=== PATIENT | female | born 1995 | race Caucasian/White ===

== ENCOUNTER 2021-01-17 15:46 | Emergency (ER) | payer OTHER, SELFPAY ==
--- NOTE | ~2021-01-17 | CT_ITS ---
EXAMINATION: CT HEAD WITHOUT CONTRAST CLINICAL INFORMATION: Headache COMPARISON: None TECHNIQUE: Contiguous axial imaging was performed from the skull base to vertex without intravenous administration of contrast. This CT examination was performed using dose optimization techniques as appropriate, variously including the following: *Automated exposure control *Adjustment of mA and/or kV according to patient size (this includes techniques or standardized protocols for targeted exams where dose is matched to indication/reason for exam; i.e. extremities or head) *Use of iterative reconstruction technique DLP: 676 mGy-cm FINDINGS: There is no evidence of acute intracranial hemorrhage or territorial infarction. No abnormal mass effect or midline shift is seen. [place]ney to white matter differentiation is well preserved. No extra-axial fluid collections are identified. The ventricles are normal in size. There is no abnormal attenuation within the brain parenchyma. The osseous structures and soft tissues are normal. The mastoid air cells and visualized portions of the paranasal sinuses are well aerated. CT/CT head/brain wo con IMPRESSION: No acute intracranial pathology.
[2021-01-17 16:03] VITALS: BP 127/73; PULSE 88; RESP 18; TEMP 36.8; O2SAT 100; BMI 25.4
[2021-01-17 16:12] LABS: Glucose, Whole Blood 89 mg/dL (60-115)
[2021-01-17 16:23] LABS: Basophils Percent Auto 0.1 % (0-2); Eosinophils Percent Auto 0.2 % (0-4); Hematocrit 37.4 % (37-47); Hemoglobin 12.6 g/dl (12.0-16.0); Imm Gran Abs Auto 0.02 X10*3/uL (0.00-0.03); Imm Gran Pct Auto 0.2 % (0.0-0.4); Lymphocytes Absolute Auto 0.9 X10*3/uL (1.2-4.9); Lymphocytes Percent Auto 7.3 % (20-40); MANUAL DIFF FLAG SCAN; Mean Corpuscular HGB Conc 33.7 g/dl (31.0-35.0); Mean Platelet Volume 9.6 fL (9.4-12.3); Monocytes Absolute Auto 0.1 X10*3/uL (0.1-1.2); Monocytes Percent Auto 0.6 % (2-11); Neutrophils Absolute Auto 11.4 X10*3/uL (2.0-8.3); Neutrophils Percent Auto 91.6 % (45-73); Platelet Count 292 X10*3/uL (160-400); Red Cell Distribution Width 12.1 % (11.0-16.0); SCAN SMEAR FLAG 1; White Blood Count 12.4 X10*3/uL (4.8-10.8)
[2021-01-17] MEDS: 0.9 % Sodium Chloride 1,000 ML 999 ML IV (16:35)
[2021-01-17 16:44] LABS: SLIDE REVIEW VERIFIED
[2021-01-17 16:50] LABS: Anion Gap 12 (12-20); Blood Urea Nitrogen 9 mg/dL (9-16); Calcium 8.5 mg/dL (8.4-10.2); Carbon Dioxide 23 mmol/L (22-29); Chloride 107 mmol/L (96-108); Creatinine Clr Calc Pharmacy 70.2; Estimated Glomerular Filt Rate > 60; Glucose Random 103 mg/dL (60-115); Potassium 3.7 mmol/L (3.3-5.1); Sodium 138 mmol/L (135-145)
--- NOTE | 2021-01-17 17:02 | ECG_ITS ---
Test Reason : LOC Blood Pressure : / mmHG Vent. Rate : 092 BPM Atrial Rate : 092 BPM P-R Int : 114 ms QRS Dur : 108 ms QT Int : 344 ms P-R-T Axes : 015 073 048 degrees QTc Int : 425 ms Normal sinus rhythm Incomplete right bundle branch block Borderline ECG When compared with ECG of 12-OCT-2013 19:31, Nonspecific T wave abnormality, improved in Anterior leads Referred By: Anabel Turner Electronically Signed By:Renato Mukherjee
--- NOTE | 2021-01-17 17:03 | ED.SYNCOPE ---
HPI - Syncope General Chief Complaint: Syncope Stated Complaint: syncope Time Seen by Provider: 01/17/21 16:57 Source: patient Mode of arrival: EMS Limitations: no limitations History of Present Illness HPI narrative: 25-year-old female came in for evaluation of a syncopal episode. 25-year-old female came in after having a witnessed syncopal episode, before patient witnessed syncopized was complaining of headache since last night, patient also had bad tooth needed to be extracted this morning, patient felt lightheadedness and near syncopal symptoms twice today while she was walking , when patient was helped to her car patient witnessed passing not, reportedly patient did not hit her head or neck, patient at this point declined any chest pain or abdominal pain, no abnormal bleeding, complain of pain on the right side of her face thinking it could be from the extracted tooth today, patient still complaining of headache mostly on the right side of her head. Patient declined bleeding or history of anemia. Patient also declined chance of being or history of ectopic . No vaginal bleed or pelvic pain. Related Data Allergies Allergy/AdvReac Type Severity Reaction Status Date / Time No Known Allergies Allergy Unverified 05/22/20 16:13 Review of Systems Review of Systems: All other systems are reviewed and are negative Constitutional: Reports as per HPI and Reports no additional constitutional complaints Eyes: Reports as per HPI and Reports no additional eye complaints Reports system reviewed and no additional complaints, except as documented Cardiovascular: Reports as per HPI and Reports no additional cardiovascular complaints Respiratory: Reports as per HPI and Reports no additional respiratory complaints Gastrointestinal: Reports as per HPI and Reports no additional gastrointestinal complaints Genitourinary: Reports no additional female genitourinary complaints Musculoskeletal: Reports no additional musculoskeletal complaints Skin/Breast: Reports system reviewed and no additional complaints, except as docu Psychiatric: Reports no additional psychiatric complaints Endocrine: Reports no additional endocrine complaints Hematologic/Lymphatic: Reports no additional hematologic/lymphatic complaints Allergic/Immunologic: Reports no additional allergic/immunologic complaints Reports system reviewed and no additional complaints, except as documented and Reports Abnormal speech present FORMERLY [facility], [facility] Past Medical History Medical History No known health problems Social History Social History Alcohol intake: never Smoking Status: Never smoker Use of substances other than those prescribed or required for medical reasons: No Advance Directives: No Advance Directives Information Provided: No Patient : No Physical Exam Vital Signs: Vital Signs: Last Vital Signs Temp 98.2 F 01/17/21 16:03 Pulse 106 H 01/17/21 17:45 Resp 16 01/17/21 17:44 BP 120/71 01/17/21 17:45 Pulse Ox 98 01/17/21 17:44 Body Mass Index 25.4 Vital signs have been reviewed as appeared to be correct. Blood pressure normal. Heart rate normal. Respiration rate normal. Temperature normal. Oxygen saturation normal. Appearance: Alert. Oriented X3. No acute distress. Head: Normal external exam. Normocephalic. Atraumatic. No Gale signs noted. No raccoon eyes noted Eyes: PERRLA. EOMI. Conjunctiva and sclera normal. Eyelids normal. ENT: TM's Normal. Pharynx normal. Uvula midline. Moist mucous membranes. No trismus noted. No drooling noted. No muffled voice noted. Neck: Normal inspection. Neck supple. FROM. No adenopathy. Thyroid Normal. No meningeal signs. No neck mass noted. CVS: Normal heart rate and rhythm. Heart sound normal. No murmurs noted. Pulses normal throughout. Respiratory: No respiratory distress. Painless inspiration. Breath sounds normal. No wheezes/rales/rhonchi noted. Chest nontender. No accessory muscle usage noted or decreased air movement noted. Abdomen: Soft and nontender. Bowel sounds normal in all 4 quadrants. No distention noted. No organomegaly noted. No visible injury noted. Back: No CVA tenderness. Full range of motion noted. Skin: Skin warm and dry. Normal skin color. Normal skin turgor. No rashes/lesions/lacerations noted. Extremities: No lower extremity edema. Extremities exhibit normal range of motion. Extremities nontender. Neuro: Oriented X 3. No motor deficit. No sensory deficit. Reflexes normal. Course Course Course Narrative: Assessment and plan. 25-year-old female came in for evaluation after syncopal episode after having a tooth extraction, patient is orthostatic by symptoms when she changed position from lying to standing, patient received 2 L IV fluids/Tylenol and had head CT. Patient reported improvement of headache, patient feels less dizzy but still dizzy when she changed position. EKG nothing acute, cardiac enzyme are unremarkable. Decline family history of young age or sudden in the family. Leukocytosis which likely to be reactionary after tooth extraction and stress the patient has been through all day today. Patient was instructed to be discharged home and follow-up with PCP with drinking plenty of fluids and return if symptoms are worsening. MDM - Syncope Lab Data Attestation: I reviewed the patient's lab results. Result diagrams: 01/17/21 16:18 01/17/21 16:18 Labs: Lab Results 01/17/21 01/17/21 01/17/21 Range/Units 16:09 16:18 16:18 WBC 12.4 H (4.8-10.8) X10*3/uL RBC 4.20 (4.20-5.50) X10*6/uL Hgb 12.6 (12.0-16.0) g/dl Hct 37.4 (37-47) % MCV 89.0 (80-98) fL MCH 30.0 (27.0-33.0) pg MCHC 33.7 (31.0-35.0) g/dl RDW 12.1 (11.0-16.0) % Plt Count 292 (160-400) X10*3/uL MPV 9.6 (9.4-12.3) fL Immature Gran % (Auto) 0.2 (0.0-0.4) % Neut % (Auto) 91.6 H (45-73) % Lymph % (Auto) 7.3 L (20-40) % [place] % (Auto) 0.6 L (2-11) % Eos % (Auto) 0.2 (0-4) % Baso % (Auto) 0.1 (0-2) % Lymph # (Auto) 0.9 L (1.2-4.9) X10*3/uL [place] # (Auto) 0.1 (0.1-1.2) X10*3/uL Eos # (Auto) 0.0 (0.0-0.4) X10*3/uL Baso # (Auto) 0.0 (0.0-0.2) X10*3/uL Abs Immat Gran (auto) 0.02 (0.00-0.03) X10*3/uL Absolute Neuts (auto) 11.4 H (2.0-8.3) X10*3/uL Absolute Nucleated RBC 0.000 (0.0-0.012) X10*3/uL Nucleated RBC % (auto) 0.0 (0.0-0.2) /100WBC Smear Tech's Comments VERIFIED Hold Purple Top SEE NOTE Sodium (135-145) mmol/L Potassium (3.3-5.1) mmol/L Chloride (96-108) mmol/L Carbon Dioxide (22-29) mmol/L Anion Gap (12-20) BUN (9-16) mg/dL Creatinine (0.5-1.4) mg/dL Estim Creat Clear Calc Estimated GFR POC Glucose 89 (60-115) mg/dL Random Glucose (60-115) mg/dL Calcium (8.4-10.2) mg/dL Troponin I High Sens (<3.5-17.0) ng/L Urine Color Urine Appearance Urine pH (5.0-8.0) Ur Specific [place] (1.005-1.025) Urine Protein (NEG-TRACE) MG/DL Urine Glucose (UA) (NEG) MG/DL Urine Ketones (NEG) MG/DL Urine Blood (NEG) Urine Nitrite (NEG) Ur Leukocyte Esterase (NEG) Urine Test (NEGATIVE) 01/17/21 01/17/21 01/17/21 Range/Units 16:18 16:18 17:22 WBC (4.8-10.8) X10*3/uL RBC (4.20-5.50) X10*6/uL Hgb (12.0-16.0) g/dl Hct (37-47) % MCV (80-98) fL MCH (27.0-33.0) pg MCHC (31.0-35.0) g/dl RDW (11.0-16.0) % Plt Count (160-400) X10*3/uL MPV (9.4-12.3) fL Immature Gran % (Auto) (0.0-0.4) % Neut % (Auto) (45-73) % Lymph % (Auto) (20-40) % [place] % (Auto) (2-11) % Eos % (Auto) (0-4) % Baso % (Auto) (0-2) % Lymph # (Auto) (1.2-4.9) X10*3/uL [place] # (Auto) (0.1-1.2) X10*3/uL Eos # (Auto) (0.0-0.4) X10*3/uL Baso # (Auto) (0.0-0.2) X10*3/uL Abs Immat Gran (auto) (0.00-0.03) X10*3/uL Absolute Neuts (auto) (2.0-8.3) X10*3/uL Absolute Nucleated RBC (0.0-0.012) X10*3/uL Nucleated RBC % (auto) (0.0-0.2) /100WBC Smear Tech's Comments Hold Purple Top Sodium 138 (135-145) mmol/L Potassium 3.7 (3.3-5.1) mmol/L Chloride 107 (96-108) mmol/L Carbon Dioxide 23 (22-29) mmol/L Anion Gap 12 (12-20) BUN 9 (9-16) mg/dL Creatinine 1.01 (0.5-1.4) mg/dL Estim Creat Clear Calc 70.2 Estimated GFR > 60 POC Glucose (60-115) mg/dL Random Glucose 103 (60-115) mg/dL Calcium 8.5 (8.4-10.2) mg/dL Troponin I High Sens < 3.5 (<3.5-17.0) ng/L Urine Color DARK YELLOW Urine Appearance CLEAR Urine pH 6.0 (5.0-8.0) Ur Specific [place] 1.025 (1.005-1.025) Urine Protein NEG (NEG-TRACE) MG/DL Urine Glucose (UA) NEG (NEG) MG/DL Urine Ketones 5 (NEG) MG/DL Urine Blood NEG (NEG) Urine Nitrite NEG (NEG) Ur Leukocyte Esterase NEG (NEG) Urine Test (NEGATIVE) 01/17/21 Range/Units 17:22 WBC (4.8-10.8) X10*3/uL RBC (4.20-5.50) X10*6/uL Hgb (12.0-16.0) g/dl Hct (37-47) % MCV (80-98) fL MCH (27.0-33.0) pg MCHC (31.0-35.0) g/dl RDW (11.0-16.0) % Plt Count (160-400) X10*3/uL MPV (9.4-12.3) fL Immature Gran % (Auto) (0.0-0.4) % Neut % (Auto) (45-73) % Lymph % (Auto) (20-40) % [place] % (Auto) (2-11) % Eos % (Auto) (0-4) % Baso % (Auto) (0-2) % Lymph # (Auto) (1.2-4.9) X10*3/uL [place] # (Auto) (0.1-1.2) X10*3/uL Eos # (Auto) (0.0-0.4) X10*3/uL Baso # (Auto) (0.0-0.2) X10*3/uL Abs Immat Gran (auto) (0.00-0.03) X10*3/uL Absolute Neuts (auto) (2.0-8.3) X10*3/uL Absolute Nucleated RBC (0.0-0.012) X10*3/uL Nucleated RBC % (auto) (0.0-0.2) /100WBC Smear Tech's Comments Hold Purple Top Sodium (135-145) mmol/L Potassium (3.3-5.1) mmol/L Chloride (96-108) mmol/L Carbon Dioxide (22-29) mmol/L Anion Gap (12-20) BUN (9-16) mg/dL Creatinine (0.5-1.4) mg/dL Estim Creat Clear Calc Estimated GFR POC Glucose (60-115) mg/dL Random Glucose (60-115) mg/dL Calcium (8.4-10.2) mg/dL Troponin I High Sens (<3.5-17.0) ng/L Urine Color Urine Appearance Urine pH (5.0-8.0) Ur Specific [place] (1.005-1.025) Urine Protein (NEG-TRACE) MG/DL Urine Glucose (UA) (NEG) MG/DL Urine Ketones (NEG) MG/DL Urine Blood (NEG) Urine Nitrite (NEG) Ur Leukocyte Esterase (NEG) Urine Test NEGATIVE (NEGATIVE) Imaging Data CT scan - head: Radiologist's impression: No acute pathology. ECG Data Interpretation: Normal sinus rhythm at 92 beats per minute, incomplete right bundle branch block, normal interval, normal axis, no ST-T changes. Discharge Plan Discharge Clinical Impression: Vasovagal syncope Patient Disposition: Home, Self-Care Instructions: Syncope in Older Adults (ED) Additional Instructions: Drink plenty of fluid. Return to the emergency department if not feeling well. Referrals: Physician,Unknown [Primary Care Provider] - 2 days
[2021-01-17] MEDS: Acetaminophen 325 MG TABLET 650 MG PO (17:22)
[2021-01-17 17:37] LABS: Glucose Urine UA NEG (NEG); Leukocyte Esterase Urine NEG (NEG); Nitrite Urine NEG (NEG); Specific Gravity - Urine 1.025 (1.005-1.025); Urine Blood NEG (NEG); Urine Ketones 5 MG/DL (NEG); Urine Protein NEG (NEG-TRACE)
[2021-01-17 17:39] LABS: Appearance Urine CLEAR; Color Urine DARK YELLOW; UPreg QC Valid YES; Urine Pregnancy NEGATIVE (NEGATIVE)
[2021-01-17 17:44] VITALS: BP 119/68; PULSE 94; RESP 16; O2SAT 98
[2021-01-17 17:45] VITALS: BP 117/69; BP 119/68; BP 120/71; PULSE 102; PULSE 106; PULSE 94
[2021-01-17 18:11] LABS: Troponin-I High Sensitivity < 3.5 ng/L (<3.5-17.0)
[2021-01-17] MEDS: 0.9 % Sodium Chloride 1,000 ML 999 ML IVCONT (19:28)
[2021-01-17 20:46] VITALS: BP 106/57; PULSE 89; RESP 16; TEMP 36.6; O2SAT 99
== END 2021-01-17 21:06 | disposition home or self-care (01) ==
PROVIDERS: Emergency Provider Emergency Medicine
DX: R55 Syncope and collapse (principal)
CPT/HCPCS: 36415; 70450; 80048; 81003; 81025; 82947; 84484; 85025; 93005; 96360; 96361; 99284; 99285

== ENCOUNTER 2025-05-14 09:53 | Outpatient (AMB) | payer OTHER, SELFPAY ==
--- NOTE | 2025-05-14 09:57 | MHC.PC.OV ---
Vital Signs 05/14/25 10:41 Height 5 ft 2 in Weight 145 lb BMI 26.5 BP 100/76 Blood Pressure Location Rt brachial Position Sitting Pulse 76 Pulse Source Pulse Oximeter Temp 98.5 F Temp Source Oral Pulse Oximetry (%) 98 Oxygen Delivery Method Room Air Intake Visit Reasons: new patient , PE Intake Note: Pt is here today as a New Patient to [facility] care/PE Is last menstrual period known: Yes Last menstrual period: 05/04/25 Allergies Penicillins Adverse Reaction (Verified 05/18/25 22:46) rash Medication List - Last Reconciled 05/14/25 by Moni Blanco MD No Known Home Meds Tobacco use date assessed: 05/14/25 Dental Screening Dental Screen Date: 05/14/25 Did you have a dental visit in the last 12 months?: No Did you have a dental problem in the last 6 months where you did not have access to dental care?: No Was dental information given to patient?: Patient declined HPI HPI Comments History of Present Illness Details 30-year-old lady, new to practice, here to establish care with a new PCP and for physical exam. 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 and medical exam form completed today and given back to patient [facility] Medical History (Updated 05/14/25 @ 11:11 by Moni Blanco MD) Dysmenorrhea No known health problems Surgical History (Updated 05/14/25 @ 11:11 by Moni Blanco MD) No pertinent past surgical history Family History (Updated 05/14/25 @ 11:15 by Moni Blanco MD) Father Acute myocardial infarction Diabetes mellitus Maternal Grandfather Diabetes mellitus Prostate cancer Paternal Grandfather Diabetes mellitus Social History Housing: Apartment Alcohol intake: never Patient Tobacco Use Status: Never used Tobacco e-Cigarette/Vaping Use: Never Used Cognitive needs: No Hearing needs: No Vision needs: Yes Female Reproductive History Menstrual Duration of menses: 3-5 days Date of last menstrual period: 05/04/25 control method: none Questionnaire PHQ-9 Over the last 2 weeks, how often have you been bothered by any of the following problems? 1. Little interest or pleasure in doing things: not at all 2. Feeling down, depressed, or hopeless: not at all 3. Trouble falling or staying asleep, or sleeping too much: more than half the days (Since passing of father recently) 4. Feeling tired or having little energy: several days 5. Poor appetite or overeating: several days 6. Feeling bad about yourself - or that you are a failure or have let yourself or your family down: not at all 7. Trouble concentrating on things, such as reading the newspaper or watching television: several days 8. Moving or speaking so slowly that other people could have noticed. Or the opposite - being so fidgety or restless that you have been moving around a lot more than usual: not at all 9. Thoughts that you would be better off or of hurting yourself in some way: not at all Total score: 5 Depression Screening Interpretation: Negative Depression Screening Done: Yes 18691 - PHQ-9 Billing: Yes Source: Developed by Drs. Donavan Connell, Love Harris, Sherif Marques and colleagues, with an educational maureen from [employer]. Thrive Questionnaire Date Thrive assessed: 05/11/25 I am a: Patient What is your living situation today?: I have a steady place to live Within the past 12 months, did the food you bought not last and you didn't have the money to get more?: Never true Within the past 12 months, did you worry whether your food would run out before you got money to buy more?: Never true Do you have trouble paying for medicines?: No Do you have trouble getting transportation to medical appointments?: No Do you have trouble paying your heating and electricity bill?: No Do you have trouble taking care of your child, family member or friend?: No Do you have trouble with day-to-day activities such as bathing, preparing meals, shopping, managing finances, etc.?: No Are you currently unemployed and looking for a job?: No Are you interested in more education?: No Please select the resources that you would like help with: None Currently or been in a relationship where the following occur: No concerns reported THRIVE Score: 0 AUDIT C Alcohol Use Questionnaire (AUDIT-C) 1. How often do you have a drink containing alcohol?: Monthly or less 2. How many drinks containing alcohol do you have on a typical day when you are drinking?: 1 or 2 3. How often do you have six or more drinks on one occasion?: Never Total Score: 1 Score Reviewed/Action Taken: Yes EDMAR-7 AMB Questionnaire EDMAR-7 Date EDMAR - 7 assessed: 05/14/25 Feeling nervous, anxious, or on edge: 1 = Several days Not being able to stop or control worryin = Several days Worrying too much about different things: 1 = Several days Trouble relaxin = Not at all Being so restless that it is hard to sit still: 0 = Not at all Becoming easily annoyed or irritable: 1 = Several days Feeling afraid as if something awful might happen: 0 = Not at all Total EDMAR-7 score (0-4 normal; 5-9 mild; 10-14 moderate; 15-21 severe): 4 Source: Developed by Drs. Donavan Connell, Love Harris, Sherif Marques and colleagues, with an educational maureen from [employer]. EDMAR-7 Assessment Billing EDMAR-7 Assessment Tool: EDMAR-7 Assessment 91747 Review of Systems Const Denies body aches, Denies fatigue, Denies fever(s), Denies headache(s) and Denies weakness Eyes Denies change in vision ENT Denies dizziness, Denies headache(s) and Denies nasal discharge Card Denies chest pain, Denies lightheadedness, Denies palpitations and Denies dyspnea Resp Denies chest congestion, Denies cough, Denies dyspnea and Denies wheezing GI Denies abdominal pain, Denies change in bowel habits and Denies heartburn Reports as per HPI, Denies urinary frequency and Denies dysuria Musc Reports no additional complaints Skin/Breast Denies breast pain, Denies breast mass, Denies lesions and Denies rash Neuro Denies dizziness, Denies headache(s) and Denies weakness Psych Reports no additional complaints Endo Denies fatigue, Denies polydipsia, Denies polyuria and Denies palpitations Meño/Lymph Denies easy bruising Aller/Immun Denies seasonal rhinorrhea and Denies wheezing Physical exam (Primary Care) Vital Signs: Last Vital Signs Temp 98.5 F 05/14/25 10:41 Pulse 76 05/14/25 10:41 BP 100/76 05/14/25 10:41 Pulse Ox 98 05/14/25 10:41 Oxygen Delivery Method Room Air 05/14/25 10:41 BMI result Body Mass Index 26.5 Tobacco/Smoking Status: Tobacco use Status Tobacco use date assessed 05/14/25 05/14/25 10:45 Patient Tobacco Use Status Never used Tobacco 05/14/25 10:45 e-Cigarette/Vaping Use Never Used 05/14/25 10:45 PHQ-9: PHQ-9 Score PHQ-9: Total score 5 05/18/25 22:53 Depression Screening Interpretation: Negative Thrive Assessment: Date of Thrive Assessment Date Thrive assessed 05/11/25 05/14/25 09:58 Currently or been in a relationship where the following occur: No concerns reported Advance Care Planning discussion: Completed/Scanned Date of discussion: 05/14/25 Who was present: Patient Forms completed: Health Care Proxy Time spent: 16-45 minutes Actual minutes spent: 2 Const General: no acute distress and alert Orientation/consciousness: patient oriented x3 HENMT Head: Yes normocephalic Ears: external ears normal, TM's normal bilaterally and EAC's normal General nose exam: Normal external nose present Face and sinus: Yes face symmetric Mouth: Normal oral and palatal mucosa present and moist mucous membranes Eyes Other: Corrected Vision by Snellen chart, with contact lenses OD 20/13 OS 20/15 OU 20/20 General: appearance normal, both eyes and all related structures Conjunctivae: conjunctivae normal Sclerae: sclerae normal Pupils: Equal, round and reactive pupils present EOM: EOMs intact bilaterally Neck Neck: Yes full ROM, Yes no lymphadenopathy and Yes supple Thyroid: Thyroid normal Chest Chest palpation & inspection: normal inspection of the chest Breast/axilla inspection: Other (Nipple ring bilateral) Breast/axilla palpation: normal palpation of the breasts and normal palpation of the axillae Resp Effort & Inspection: normal respiratory effort Auscultation: clear to auscultation bilaterally Cardio Other: S1-S2 present regular rate and rhythm, no murmurs Rate: regular rate Rhythm: regular rhythm Heart sounds: S1 normal heart sound present and S2 normal heart sound present GI Inspection: Yes normal to inspection Palpation (GI): Soft to palpation, nontender, no guarding and no masses Auscultation: normal bowel sounds General: Yes no CVA tenderness and Yes deferred (Referred to [facility]) Back/Spine/Pelvis Back: no CVA tenderness and No back tenderness Skin Other: Tattoo on left upper back General skin exam: no rashes or lesions noted Neuro General: patient oriented x3, gait normal, tone normal, moves all extremities, Normal light touch and pain sensation and no focal motor deficits Cranial nerves: Yes Equal, round and reactive pupils present Cognition (Neuro): normal cognition Gait exam (Neuro): Normal gait present Motor exam (neuro): 5/5 motor strength present throughout Extrem General: Yes full ROM, Yes no joint enlargement, Yes no calf tenderness and Yes normal gait Psych Appearance: grossly normal and well kempt Mental Status: mental status grossly normal Speech and movement: Normal speech and movement present Affect: normal affect Attitude: cooperative Thought process: Normal thought process present Thought content: Normal thought content present Coding Level of Care Code New Pt Prev Care 18-39yr(27975 Diagnoses Annual visit for general adult medical examination with abnormal findings Z00.01 Dysmenorrhea N94.6 Advance directive discussed with patient Z71.89 Screening examination for pulmonary tuberculosis Z11.1 Encounter for hepatitis C screening test for low risk patient Z11.59 Screening for malignant neoplasm of cervix Z12.4 Additional Codes EDMAR-7 Assessment Billing - EDMAR-7 Assessment Tool: EDMAR-7 Assessment 44987 ([id number]) PHQ-9 - 87117 - PHQ-9 Billing: Yes ([id number]) Vital Signs *Quality* - Advance Care Planning discussion: Completed/Scanned ([id number]) Vital Signs *Quality* - Time spent: 16-45 minutes ([id number]) Assessment & Plan Assessment & Plan (1) Annual visit for general adult medical examination with abnormal findings: Code(s): Z00.01 - Encounter for general adult medical examination with abnormal findings Plan: Will check appropriate labs. Recommended dental visit every 6 months and regular eye exams, at least every 2 years. Take adequate calcium in diet and vitamin-D 3 at 2000 IU per cap once a day, in addition to weight-bearing exercises to help maintain good muscle tone and weight control. Instructed to do self-breast exam, and recommended to get yearly mammogram, starting at age 40. Reminded to get yearly flu vaccine, recommended to get COVID booster, up-to-date with her Tdap in all required vaccines by her employment. 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 (3) Advance directive discussed with patient: Code(s): Z71.89 - Other specified counseling Plan: Initiated the conversation about Advanced Directives. Advanced Directives help patients prepare for current and future decisions about their medical treatment and place of care. Discussed with patient that it is a process where a patients current condition and prognosis are reviewed, their wishes for information regarding their illness are elicited, and likely medical dilemmas are presented and options discussed. Healthcare proxy form completed today. The form can be amended as needed, reviewed yearly and make changes as needed (4) Screening examination for pulmonary tuberculosis: Code(s): Z11.1 - Encounter for screening for respiratory tuberculosis Plan: T spot ordered (5) Encounter for hepatitis C screening test for low risk patient: Code(s): Z11.59 - Encounter for screening for other viral diseases Plan: Hepatitis-C antibody level ordered (6) Screening for malignant neoplasm of cervix: Code(s): Z12.4 - Encounter for screening for malignant neoplasm of cervix Plan: Referred to [facility] in [place] per patient preference Orders: Orders Alanine Aminotransferase 05/14/25 N94.6 - Dysmenorrhea, unspecified, Z00.01 - Encounter for general adult medical examination with abnormal findings, Z11.1 - Encounter for screening for respiratory tuberculosis, Z11.59 - Encounter for screening for other viral diseases, Z13.1 - Encounter for screening for diabetes mellitus, Z13.220 - Encounter for screening for lipoid disorders, Z71.89 - Other specified counseling Aspartate Amino Transferase 05/14/25 N94.6 - Dysmenorrhea, unspecified, Z00.01 - Encounter for general adult medical examination with abnormal findings, Z11.1 - Encounter for screening for respiratory tuberculosis, Z11.59 - Encounter for screening for other viral diseases, Z13.1 - Encounter for screening for diabetes mellitus, Z13.220 - Encounter for screening for lipoid disorders, Z71.89 - Other specified counseling Basic Metabolic Panel Fasting 05/14/25 N94.6 - Dysmenorrhea, unspecified, Z00.01 - Encounter for general adult medical examination with abnormal findings, Z11.1 - Encounter for screening for respiratory tuberculosis, Z11.59 - Encounter for screening for other viral diseases, Z13.1 - Encounter for screening for diabetes mellitus, Z13.220 - Encounter for screening for lipoid disorders, Z71.89 - Other specified counseling Complete Blood Count Auto Diff 05/14/25 N94.6 - Dysmenorrhea, unspecified, Z00.01 - Encounter for general adult medical examination with abnormal findings, Z11.1 - Encounter for screening for respiratory tuberculosis, Z11.59 - Encounter for screening for other viral diseases, Z13.1 - Encounter for screening for diabetes mellitus, Z13.220 - Encounter for screening for lipoid disorders, Z71.89 - Other specified counseling Vitamin D 25-OH Total 05/14/25 N94.6 - Dysmenorrhea, unspecified, Z00.01 - Encounter for general adult medical examination with abnormal findings, Z11.1 - Encounter for screening for respiratory tuberculosis, Z11.59 - Encounter for screening for other viral diseases, Z13.1 - Encounter for screening for diabetes mellitus, Z13.220 - Encounter for screening for lipoid disorders, Z71.89 - Other specified counseling Hepatitis C Antibody 05/14/25 N94.6 - Dysmenorrhea, unspecified, Z00.01 - Encounter for general adult medical examination with abnormal findings, Z11.1 - Encounter for screening for respiratory tuberculosis, Z11.59 - Encounter for screening for other viral diseases, Z13.1 - Encounter for screening for diabetes mellitus, Z13.220 - Encounter for screening for lipoid disorders, Z71.89 - Other specified counseling Lipid Panel 05/14/25 N94.6 - Dysmenorrhea, unspecified, Z00.01 - Encounter for general adult medical examination with abnormal findings, Z11.1 - Encounter for screening for respiratory tuberculosis, Z11.59 - Encounter for screening for other viral diseases, Z13.1 - Encounter for screening for diabetes mellitus, Z13.220 - Encounter for screening for lipoid disorders, Z71.89 - Other specified counseling T Spot TB 05/14/25 N94.6 - Dysmenorrhea, unspecified, Z00.01 - Encounter for general adult medical examination with abnormal findings, Z11.1 - Encounter for screening for respiratory tuberculosis, Z11.59 - Encounter for screening for other viral diseases, Z13.1 - Encounter for screening for diabetes mellitus, Z13.220 - Encounter for screening for lipoid disorders, Z71.89 - Other specified counseling Referrals [facility] Referral N94.6 - Dysmenorrhea, unspecified, Z12.4 - Encounter for screening for malignant neoplasm of cervix
[2025-05-14 10:41] VITALS: BP 100/76; PULSE 76; TEMP 36.9; O2SAT 98; BMI 26.5
--- OUTSIDE RECORDS SUMMARY | 2025-05-14 11:38 | XMS_ITS | Encounter Summary ---
Author Organization [facility] Address [address] [place] [id number] Phone Care Team Providers Care Test Fixture Assembler Name Role Phone Yvonne Cartagena MD Primary Care Provide r Unknown, Unknown Primary Care Provider Corona arnett Encounter Details Date Type Department Care Team (Late st Contact Info) Description 03/03/2021 Procedure Pass [facility], Ct Scan - [facility] [address] [place] [address] Social History Tobacco Use Types Packs/Day Years Used Date Smoking Tobacco: Never Smokeless Tobacco: Never Alcohol Use Standard Drinks/Week Comments Not Currently 0 (1 standard drink = 0.6 oz pur e alcohol) Comments Unknown Sex and Gender Information Value Date Recorded Sex Assigned at Female 01/01/2020 4:59 PM EDT Legal Sex Female 4:31 PM EDT Gender Identity Female 01/01/2020 4:59 PM EDT Sexual Orientation Straight 06/04/2020 7: 50 AM EDT documented as of this encounter Functional Status * Calculated C-SSRS Risk Score (Lifetime/Recent) Answer Date of Assessment Author No Risk Indicated 03/03/2021 4:52 PM EDT Jasmine Santana RN * [place] Suicide Severity Rating Scale (Screener/Recent Self-Report) Question Answer Date of Assessment Author 1. Wish to be (Past 1 Month) No 03/03/2021 4:52 PM EDT Jasmine Rueda, RN 2. Non-Specific Active Suici radha Thoughts (Past 1 Month) No 03/03/2021 4:52 PM EDT Genyn Rueda RN 6. Suicidal Behavior (Lifetime) No 4:52 PM EDT Jasmine Reuda RN documented as of this encounter Plan of Treatment Not on file documented as of this encounter Visit Diagnoses Not on filedocumented in this encounter Care Teams Test Fixture Assembler Relationship Specialty Start Date End Date Yvonne Cartagena MD [address] [place] [phone] PCP - General Internal Medicine 11/05/20 01/26/24 Unknown, Unknown, MD PCP - General 01/27/24 documented as of this encounter Additional Source Comments The information contained in this document represents components of the legal health record. It is not the complete legal health record.[facility]
--- OUTSIDE RECORDS SUMMARY | 2025-05-14 11:38 | XMS_ITS | Clinical Summary ---
Author Organization [facility] Address [address] [place] [id number] Phone Care Team Providers Care Commodity Management Specialist Name Role Phone Unknown, Unknown Primary Care Provider Corona arnett Allergies Active Allergy Reactions Criticality Noted Date Comments Penicillins 03/03/2021 Medications norethindrone (AYGESTIN) 5 mg tablet Take 5 mg by mouth 3 times daily until bleeding stops, then twice daily for 3 weeks. 60 tablet 06/04/20 20 Active Additional Information Patient not taking.Reported on 06/30/2020 ondansetron (ZOFRAN-ODT) 4 MG disintegrating tablet Take 1 tablet (4 mg total) by mouth every 8 (eight) hours as needed for nausea. 20 tablet 02/24/20 23 Active naproxen (NAPROSYN) 375 MG tablet Take 1 tablet (375 mg total) by mouth 2 (two) times a day as needed (pain). 20 tablet 02/24/20 23 Active ondansetron (ZOFRAN-ODT) 4 MG disintegrating tablet Take 1 tablet (4 mg total) by mouth every 8 (eight) hours as needed for nausea. 15 tablet 01/27/20 24 Active Active Problems No known active problems Social History Tobacco Use Types Packs/Day Years Used Date Smoking Tobacco: Never Smokeless Tobacco: Never Alcohol Use Standard Drinks/Week Comments Not Currently 0 (1 standard drink = 0.6 oz pur e alcohol) Education Answer Date Recorded Are you interested in more education? Not on alicia e 12/31/2022 Are you concerned about learning? Not on file 12/31/2022 No 12/31/2022 No 12/31/2022 Digital Access Answer Date Recorded No 01/29/2023 No 01/29/2023 No 01/29/2023 Reliable internet access at home? Not on file 01/29/2023 Device with a working camera? Not on file Intimate Partner Violence Answer Date R ecorded Are you denied basic needs s uch as food, clothing, or medical care? No 01/26/2024 In the past 12 months have y ou been in a relationship with a person who hurts, threatens, or tries to control you? No 01/26/2024 Are you denied basic needs s uch as food, clothing, or medical care? No 01/26/2024 In the past 12 months have y ou been in a relationship with a person who hurts, threatens, or tries to control you? No 01/26/2024 Comments Unknown Sex and Gender Information Value Date Recorded Sex Assigned at Female 01/01/2020 4:59 PM EDT Legal Sex Female 4:31 PM EDT Gender Identity Female 01/01/2020 4:59 PM EDT Sexual Orientation Straight 06/04/2020 7: 50 AM EDT Last Filed Vital Signs Vital Sign Reading Time Taken Comments Blood Pressure 97/55 01/27/2024 2:40 AM EDT Pulse 66 01/27/2024 2:40 AM EDT Temperature 36.2 C (97.2 F) 01/27/2024 2:40 AM EDT Respiratory Rate 16 01/27/2024 2:40 AM EDT Oxygen Saturation 100% 01/27/2024 2:40 AM EDT Inhaled Oxygen Concentration - - Weight 63.5 kg (140 lb) 02/23/2023 8:14 AM EDT Height 154.9 cm (5' 1 ) 02/23/2023 8:14 AM EDT Body Mass Index 26.45 02/23/2023 8:14 AM EDT Plan of Treatment Health Maintenance Due Date Last Done Comments DEPRESSION SCREENING 2005 HEPATITIS C SCREENING 2011 HIV ONE-TIME SCREENING (18-6 5 YEARS) 2011 PAP SMEAR 2014 INFLUENZA VACCINE (#1) 2025 1, 09/04/2020 COVID-19 VACCINE (3 - 2024-2 6 season) 2025 12/19/2020, 11/28/2020 Adult Td,Tdap Booster 05/26/2031 05/26/2021 , 06/10/2010 SMOKING STATUS SCREENING (On ce After 26 Yrs) Completed 03/03/2021 HEPATITIS A VACCINES Aged Out No long er eligible based on patient's age to complete this topic HIB VACCINES Aged Out No longer eligi ble based on patient's age to complete this topic MENINGOCOCCAL VACCINES (ACWY) Aged Out No longer eligible based on patient's age to complete this topic MENINGOCOCCAL VACCINES (B) Aged Out N o longer eligible based on patient's age to complete this topic PNEUMOCOCCAL VACCINES (0-49 years) Aged Out No longer eligible b ased on patient's age to complete this topic Medical Devices Not on file Insurance [employer] INSURANCE Care Teams Commodity Management Specialist Relationship Specialty Start Date End Date Unknown, Unknown, PCP - General 01/27/24 Additional Source Comments The information contained in this document represents components of the legal health record. It is not the complete legal health record.[facility]
--- OUTSIDE RECORDS SUMMARY | 2025-05-14 11:38 | XMS_ITS | Encounter Summary ---
Author Organization [facility] Address [address] [place] [address] [place] [phone] Phone Care Team Providers Care Cartridge Assembling Machine Adjuster Name Role Phone Yvonne Cartagena MD Primary Care Provide r Unknown, Unknown Primary Care Provider Corona arnett Encounter Details Date Type Department Care Team (Late st Contact Info) Description 02/27/2021 Procedure Pass [facility], Ct Scan - [facility] [address] [place] [address] Social History Tobacco Use Types Packs/Day Years [...] Date of Assessment Author No Risk Indicated 02/27/2021 5:10 PM EDT Archana Brownlee RN * [place] Suicide Severity Rating Scale (Screener/Recent Self-Report) Question Answer Date of Assessment Author 1. Wish to be (Past 1 Month) No 02/27/2021 5:10 PM EDT Archana Brownlee RN 2. Non-Specific Active Suicidal Thoughts (Past 1 Month) No 02/27/2021 5:10 PM EDT Postema, Archana del rosario RN 6. Suicidal Behavior (Lifetime) No 02/27/2021 5:10 PM EDT Postema, Archana del rosario RN documented as of this encounter Plan of Treatment Not on file documented as of this encounter Visit Diagnoses Not on filedocumented in this encounter Care Teams Cartridge Assembling Machine Adjuster Relationship Specialty Start Date End Date Yvonne Cartagena MD [address] [place] [id number] PCP - General Internal Medicine 11/05/20 01/26/24 Unknown, Unknown, PCP - General 01/27/24 documented as of this encounter Additional Source Comments The information contained in this document represents components of the legal health record. It is not the complete legal health record.[facility]
--- OUTSIDE RECORDS SUMMARY | 2025-05-14 11:38 | XMS_ITS ---
Author Name [facility] Organization Unknown Results Test Name/Text Value Interpretation Date Range Source MAGNESIUM 2.04 mg/dL Normal 11/10/2024 1.6 - 2.6 [facility] HCG, BETA QUANTITATIVE < 2.6 Normal 11/10/2024 [facility] GFRE 75.0 Normal 11/10/2024 60 - [facility] SODIUM 137.0 mmol/L Normal 11/10/2024 136 - 145 [facility] GLOBULIN 2.0 g/dL Below low normal 11/10/2024 2.2 - 3.5 [facility] POTASSIUM SERUM 4.3 mmol/L Normal 11/10/2024 3.5 - 5.1 [facility] BILIRUBIN,TOTAL 0.4 mg/dL Normal 11/10/2024 0.3 - 1.2 [facility] PROTEIN, TOTAL 6.2 g/dL Normal 11/10/2024 5.7 - 8.2 [facility] BUN 9.0 mg/dL Normal 11/10/2024 9 - 23 [facility] ALT (SGPT) 11.0 U/L Normal 11/10/2024 10 - 49 [facility] A/G RATIO 2.1 g/dL Normal 11/10/2024 [facility] GLUCOSE 109.0 mg/dL Above high normal 11/10/2024 74 - 106 [facility] CREATININE 0.93 mg/dL Normal 11/10/2024 0.55 - 1.02 [facility] ALBUMIN 4.2 g/dL Normal 11/10/2024 3.2 - 4.8 [facility] ALKALINE PHOSPHATASE 45.0 U/L Normal 11/10/2024 45 - 129 [facility] CHLORIDE 103.0 mmol/L Normal 11/10/2024 98 - 107 [facility] CO2 25.0 mmol/L Normal 11/10/2024 20 - 31 [facility] AST (SGOT) 14.0 U/L Normal 11/10/2024 0 - 34 [facility] BUN/CREAT.RATIO 9.7 Normal 11/10/2024 [facility] PATIENT FASTING? UNKNOWN Normal 11/10/2024 [facility] HGB 13.0 g/dL Normal 11/10/2024 12.1 - 15.7 [facility] MONOCYTES 6.0 % Normal 11/10/2024 0 - 12 [facility] IMMATURE GRANULOCYTES 0.0 % Normal 11/10/2024 0 - 0.4 5 [facility] MCV 89.0 fL Normal 11/10/2024 83 - 102 [facility] ABSOLUTE BASO 0.0 K/uL Normal 11/10/2024 0 - 0.2 [facility] MPV 10.0 fL Normal 11/10/2024 8 - 12 [facility] PLATELET COUNT 341.0 K/uL Normal 11/10/2024 150 - 480 [facility] BASOPHILS 0.0 % Normal 11/10/2024 0 - 2 [facility] ABSOLUTE LYMPHS 1.2 K/uL Below low normal 11/10/2024 1.5 - 4.9 [facility] ABSOLUTE MONOS 0.4 K/uL Normal 11/10/2024 0.2 - 1.5 [facility] WBC 6.6 K/uL Normal 11/10/2024 3.7 - 10.3 [facility] EOSINOPHILS 1.0 % Normal 11/10/2024 0 - 6 [facility] ABSOLUTE GRANULOCYTES 4.9 K/uL Normal 11/10/2024 2.2 - 7 .3 [facility] LYMPHS 18.0 % Normal 11/10/2024 16 - 50 [facility] MCHC 33.5 g/dL Normal 11/10/2024 31 - 36 [facility] ABSOLUTE IMMATURE GRANULOCYTES 0.0 K/uL Normal 11/10/2024 0 - 0.3 [facility] MCH 30.0 PG Normal 11/10/2024 27 - 34 [facility] NUCLEATED RBC 0.0 % Normal 11/10/2024 0 - 0.2 [facility] GRANULOCYTES 75.0 % Normal 11/10/2024 23 - 78 [facility] ABSOLUTE NUCLEATED RBC 0.0 K/uL Normal 11/10/2024 0 - 0. 012 [facility] ABSOLUTE EOS 0.0 K/uL Normal 11/10/2024 0 - 0.7 [facility] RDW 12.2 % Normal 11/10/2024 11.1 - 13.3 [facility] RBC 4.36 M/uL Normal 11/10/2024 4 - 5.4 [facility] HCT 38.8 % Normal 11/10/2024 36 - 46 [facility] Encounters Encounter Type Encounter Reason Primary Diagnosis Location Date Emergency PASSED OUT, DISORIENTED, HEADACHE, CONFUSED PASSED OUT, DISORIENTED, HEADACHE, CONFUSED [facility] 11/09/2024 Care Team Organization Name Specialty Phone Email Start Date End Da david [facility] Die Engraver (ECMP) BING Primary Care 04/22/2025 [facility] remember,Patient Primary Care 11/14/20242024 [facility] Patient remember Primary Care 11/10/2024
--- OUTSIDE RECORDS SUMMARY | 2025-05-14 11:38 | XMS_ITS | Encounter Summary ---
Author Organization [facility] Address [address] [place] [phone] Phone Care Team Providers Care Turn Machine Operator Name Role Phone Yvonne Cartagena MD Primary Care Provide r Unknown, Unknown Primary Care Provider Corona arnett Encounter Details Date Type Department Care Team (Late st Contact Info) Description 11/05/2020 Procedure Pass [facility], Ct Scan - [facility] [address] [place] [address] Social History Tobacco Use Types Packs/Day Years [...] Date of Assessment Author No Risk Indicated 11/05/2020 9:27 AM Archana Dawson RN * [place] Suicide Severity Rating Scale (Screener/Recent Self-Report) Question Answer Date of Assessment Author 1. Wish to be (Past 1 Month) No 11/05/2020 9:27 AM Archana Dawson RN 2. Non-Specific Active Suicidal Thoughts (Past 1 Month) No 11/05/2020 9:27 AM Archana Dawson RN 6. Suicidal Behavior (Lifetime) No 11/05/2020 9:27 AM Archana Dawson RN documented as of this encounter Plan of Treatment Not on file documented as of this encounter Visit Diagnoses Not on filedocumented in this encounter Care Teams Turn Machine Operator Relationship Specialty Start Date End Date Yvonne Cartagena MD [address] [place] [phone] PCP - General Internal Medicine 11/05/20 01/26/24 Unknown, Unknown, PCP - General 01/27/24 documented as of this encounter Additional Source Comments The information contained in this document represents components of the legal health record. It is not the complete legal health record.[facility]
== END 2025-05-14 11:34 | disposition home or self-care (01) ==
PROVIDERS: Visit Provider Internal Medicine
DX: Z00.01 Encounter for general adult medical examination with abnormal findings (principal); N94.6 Dysmenorrhea, unspecified; Z71.89 Other specified counseling; Z11.1 Encounter for screening for respiratory tuberculosis; Z11.59 Encounter for screening for other viral diseases; Z12.4 Encounter for screening for malignant neoplasm of cervix; Z00.00 Encounter for general adult medical examination without abnormal findings

== ENCOUNTER → 2025-05-14 09:53 | Outpatient (BNVA) | payer OTHER, SELFPAY | PROVIDERS: Visit Provider Internal Medicine | DX: Z00.01 Encounter for general adult medical examination with abnormal findings (principal); N94.6 Dysmenorrhea, unspecified; Z71.89 Other specified counseling | CPT/HCPCS: 96127; 99497 ==

== ENCOUNTER 2025-06-19 07:56 | Outpatient (REF) | payer OTHER, SELFPAY ==
--- OUTSIDE RECORDS SUMMARY | 2025-06-19 08:02 | XMS_ITS | Encounter Summary ---
Author Organization [facility] Address [address] [place] [phone] Phone Care Team Providers Care Studio Operations Engineer In Charge Name Role Phone Yvonne Cartagena MD Primary Care Provide r Unknown, Unknown Primary Care Provider Corona arnett Encounter Details Date Type Department Care Team (Late st Contact Info) Description 11/05/2020 Procedure Pass [facility], Ct Scan - [facility] [address] [place] [address] Social History Tobacco Use Types Packs/Day Years [...] 11/05/2020 9:27 AM Archana Dawson RN * [place] Suicide Severity Rating Scale (Screener/Recent Self-Report) Question [...] on filedocumented in this encounter Care Teams Studio Operations Engineer In Charge Relationship Specialty Start Date End Date Yvonne Cartagena MD [address] [place] [phone] PCP - General Internal Medicine 11/05/20 01/26/24 Unknown, Unknown, PCP - General 01/27/24 documented as of this encounter Additional Source Comments The information contained in this document represents components of the legal health record. It is not the complete legal health record.[facility]
--- OUTSIDE RECORDS SUMMARY | 2025-06-19 08:02 | XMS_ITS | Clinical Summary ---
Author Organization [facility] Address [address] [place] [phone] Phone Care Team Providers Care Microsoft Windows Engineer Name Role Phone Unknown, Unknown Primary Care [...] topic Medical Devices Not on file Insurance Location [employer] INSURANCE Care Teams Microsoft Windows Engineer Relationship Specialty Start Date End Date Unknown, Unknown, PCP - General 01/27/24 Additional Source Comments The information contained in this document represents components of the legal health record. It is not the complete legal health record.[facility]
--- OUTSIDE RECORDS SUMMARY | 2025-06-19 08:02 | XMS_ITS | Encounter Summary ---
Author Organization [facility] Address [address] [place] [address] [place] [phone] Phone Care Team Providers Care Business Center Attendant Name Role Phone Yvonne Cartagena MD Primary Care Provide r Unknown, Unknown Primary Care Provider Corona arnett Encounter Details Date Type Department Care Team (Late st Contact Info) Description 02/27/2021 Procedure Pass [facility], Ct Scan - [facility] [address] [place] [address] Social History Tobacco Use Types Packs/Day Years [...] 5:10 PM EDT Archana Brownlee RN * [place] Suicide Severity Rating Scale (Screener/Recent Self-Report) Question [...] on filedocumented in this encounter Care Teams Business Center Attendant Relationship Specialty Start Date End Date Yvonne Cartagena MD [address] [place] [phone] PCP - General Internal Medicine 11/05/20 01/26/24 Unknown, Unknown, PCP - General 01/27/24 documented as of this encounter Additional Source Comments The information contained in this document represents components of the legal health record. It is not the complete legal health record.[facility]
--- OUTSIDE RECORDS SUMMARY | 2025-06-19 08:02 | XMS_ITS | Encounter Summary ---
Author Organization [facility] Address [address] [place] [phone] Phone Care Team Providers Care Hand Tufter Name Role Phone Yvonne Cartagean MD Primary Care Provide r Unknown, Unknown Primary Care Provider Corona arnett Encounter Details Date Type Department Care Team (Late st Contact Info) Description 03/03/2021 Procedure Pass [facility], Ct Scan - [facility] [address] [place] [address] Social History Tobacco Use Types Packs/Day Years [...] 4:52 PM EDT Jasmine Santana RN * [place] Suicide Severity Rating Scale (Screener/Recent Self-Report) Question Answer Date of Assessment Author 1. Wish to be (Past 1 Month) No 03/03/2021 4:52 PM EDT Jasmine Rueda, RN 2. Non-Specific Active Suici radha Thoughts (Past 1 Month) No 03/03/2021 4:52 PM EDT Genny Rueda RN 6. Suicidal Behavior (Lifetime) No 4:52 PM EDT Jasmine Rueda RN documented as of this encounter Plan of Treatment Not on file documented as of this encounter Visit Diagnoses Not on filedocumented in this encounter Care Teams Hand Tufter Relationship Specialty Start Date End Date Yvonne Cartagena MD [address] [place] [phone] PCP - General Internal Medicine 11/05/20 01/26/24 Unknown, Unknown, MD PCP - General 01/27/24 documented as of this encounter Additional Source Comments The information contained in this document represents components of the legal health record. It is not the complete legal health record.[facility]
[2025-06-19 10:09] LABS: MANUAL DIFF FLAG NO
[2025-06-19 10:21] LABS: Hematocrit 40.8 % (37.0-47.0); Hemoglobin 13.3 g/dl (12.0-16.0); Imm Gran Abs Auto 0.01 X10*3/uL (0.00-0.03); Imm Gran Pct Auto 0.2 % (0.0-0.4); Lymphocytes Absolute Auto 1.9 X10*3/uL (1.2-4.9); Mean Corpuscular HGB Conc 32.6 g/dl (31.0-35.0); Mean Corpuscular Hemoglobin 29.5 pg (27.0-33.0); Mean Corpuscular Volume 90.5 fL (80.0-98.0); NRBC Abs Auto 0.000 X10*3/uL (0.0-0.012); NRBC Pct Auto 0.0 /100WBC (0.0-0.2); Platelet Count 297 X10*3/uL (160-400); Red Blood Count 4.51 X10*6/uL (4.20-5.50); White Blood Count 5.0 X10*3/uL (4.8-10.8)
[2025-06-19 10:41] LABS: Alanine Aminotransferase 12 U/L (0-31); Aspartate Amino Transferase 18 U/L (5-31); Cholesterol 179 mg/dL (<200); HDL Cholesterol 57 mg/dL (>40); Triglycerides 53 mg/dL (<150)
[2025-06-19 10:55] LABS: ~HepC Num1 0.12 S/CO (0.00-0.79); ~Hepatitis C Antibody Nonreactive (Nonreactive)
[2025-06-21 22:18] LABS: TS Negative Control Passed; TS Panel A 1; TS Panel B 0; TS Positive Control Passed; TSpotTB Negative (Negative)
== END 2025-06-19 07:57 | disposition home or self-care (01) ==
LOC: HO.HMGCLDS 07:56
PROVIDERS: PCP Internal Medicine; Visit Provider Internal Medicine
DX: Z00.01 Encounter for general adult medical examination with abnormal findings (principal); Z13.220 Encounter for screening for lipoid disorders; Z13.1 Encounter for screening for diabetes mellitus; Z11.1 Encounter for screening for respiratory tuberculosis; Z11.59 Encounter for screening for other viral diseases; Z13.6 Encounter for screening for cardiovascular disorders; N94.6 Dysmenorrhea, unspecified; Z71.89 Other specified counseling
CPT/HCPCS: 36415; 80061; 82306; 84450; 84460; 85025; 86481; 86803